=== PATIENT | male | born 1965 ===

== ENCOUNTER 2017-11-01 10:57 | Emergency (ER) | payer OTHER ==
[2017-11-01 11:56] VITALS: TEMP 97; O2SAT 98
[2017-11-01] MEDS ORDERED: Sodium Chloride 0.9% 1,000 ML IV STA (12:58)
[2017-11-01 13:25] LABS: BASO % 0.2 % (0.0-2.0); EOS # 0.1 K/uL (0.0-0.7); EOS % 1.6 % (0.0-4.0); HEMOGLOBIN 16.3 g/dL (12.0-18.0); LYMPH # 1.2 K/uL (1.0-4.3); LYMPH % 18.9 % (20.0-40.0); MEAN CORPUSCULAR HEMOGLOBIN 29.4 pg (27.0-31.0); MEAN CORPUSCULAR HGB CONC 33.4 g/dL (33.0-37.0); MEAN PLATELET VOLUME 9.6 fl (7.2-11.7); MONO # 0.7 K/uL (0.0-0.8); MONO % 11.3 % (0.0-10.0); NEUT # 4.4 K/uL (1.8-7.0); NRBC % 0.1 % (0.0-0.0); RBC 5.55 Mil/uL (4.40-5.90); RED CELL DISTRIBUTION WIDTH 13.8 % (11.5-14.5); WHITE BLOOD COUNT 6.5 K/uL (4.8-10.8)
--- NOTE | 2017-11-01 13:26 | ED PDOC ---
HPI: Abdomen Time Seen by Provider: 11/01/17 12:50 Chief Complaint (Nursing): Abdominal Pain Chief Complaint (Provider): Abdominal Pain History Per: Patient History/Exam Limitations: no limitations Onset/Duration Of Symptoms: Intermittent Episodes (x4) Additional Complaint(s): 52 year old male presents to the emergency department with a complaint of lower abdominal pain and cramping associated with watery diarrhea and nausea ongoing intermittently for 4 days. He denied any fever, chills, vomiting, bloody stools. recent travel, antibiotic use or sick contacts. Patient reported that he took OTC medications for diarrhea with minimal relief. PMD: none provided Past Medical History Reviewed: Historical Data, Nursing Documentation, Vital Signs Vital Signs: Last Vital Signs Temp 97 F L 11/01/17 11:53 Pulse 86 11/01/17 11:53 Resp 16 11/01/17 11:53 BP 158/103 H 11/01/17 11:53 Pulse Ox 98 11/01/17 16:38 - Medical History PMH: No Chronic Diseases - Surgical History Surgical History: No Surg Hx - Family History Family History: States: Unknown Family Hx - Social History Current smoker - smoking cessation education provided: No Ex-Smoker (has not smoked in the last 12 months): Yes Alcohol: Social Drugs: Denies - Home Medications Home Medications: Ambulatory Orders Medication Instructions Recorded Dicyclomine [Dicyclomine HCl] 10 mg PO TID PRN #15 cap 11/01/17 - Allergies Allergies/Adverse Reactions: Allergies Allergy/AdvReac Type Severity Reaction Status Date / Time No Known Allergies Allergy Verified 11/01/17 11:52 Review of Systems ROS Statement: Except As Marked, All Systems Reviewed And Found Negative Constitutional: Negative for: Fever, Chills Gastrointestinal: Positive for: Nausea, Abdominal Pain (lower cramping), Diarrhea (watery). Negative for: Vomiting, Hematochezia Physical Exam - Reviewed Nursing Documentation Reviewed: Yes Vital Signs Reviewed: Yes - Physical Exam Appears: Positive for: Well, Non-toxic, No Acute Distress Head Exam: Positive for: ATRAUMATIC, NORMAL INSPECTION, NORMOCEPHALIC Skin: Positive for: Normal Color Eye Exam: Positive for: Normal appearance ENT: Positive for: Normal ENT Inspection Neck: Positive for: Normal Cardiovascular/Chest: Positive for: Regular Rate, Rhythm Respiratory: Positive for: Normal Breath Sounds. Negative for: Wheezing, Respiratory Distress Gastrointestinal/Abdominal: Positive for: Soft, Tenderness (mild suprapubic diffusely) Extremity: Positive for: Normal ROM (upper/lower) Neurologic/Psych: Positive for: Alert, Oriented - Laboratory Results Result Diagrams: 11/01/17 13:19 11/01/17 13:19 - ECG O2 Sat by Pulse Oximetry: 98 (RA) Pulse Ox Interpretation: Normal Medical Decision Making Medical Decision Making: Initial Impression: Abdominal pain with diarrhea Differential Diagnosis: Infectious colitis; Enteritis; Viral vs. bacterial illness; Diverticulitis Initial Plan: * CT ABD/pelvis with IV contrast * CMP * Urine dipstick * CBC * Bentyl 10mg PO * NS 1,000ml IV per 1,000mls/hr Time: 1423 --CT ABD/pelvvis FINDINGS: LOWER THORAX: Unremarkable. LIVER: 8 mm right hepatic dome hypoattenuating structure. No ductal dilatation. GALLBLADDER AND BILE DUCTS: Unremarkable. PANCREAS: Unremarkable. No gross lesion or ductal dilatation. SPLEEN: Unremarkable. ADRENALS: Unremarkable. No mass. KIDNEYS AND URETERS: Unremarkable. No hydronephrosis. No solid mass. VASCULATURE: Unremarkable. No aortic aneurysm. BOWEL: Unremarkable. No obstruction. No gross mural thickening. APPENDIX: Normal appendix. PERITONEUM: Unremarkable. No free fluid. No free air. LYMPH NODES: Unremarkable. No enlarged lymph nodes. BLADDER: Unremarkable. REPRODUCTIVE: Unremarkable. BONES: No acute fracture. OTHER FINDINGS: None. IMPRESSION: No acute abdominopelvic pathology. Time: 1319 --Labs: no significant abnormalities. Time: 1628 --Upon provider reevaluation, patient is medically stable with significant improvement and requires no further treatment in the ED at this time. Patient will be discharged home with Rx for Dicyclomine HCL. Counseling was provided and all questions were answered regarding diagnosis and need for follow up with [facility] in 2-3 days. There is agreement to discharge plan. Return if symptoms persist or worsen. Clinical Impression: Vomiting; Diarrhea; Abdominal pain Scribe Attestation: Documented by Molly Ernandez, acting as a scribe for Jonny Henry MD. Provider Scribe Attestation: All medical record entries made by the Scribe were at my direction and personally dictated by me. I have reviewed the chart and agree that the record accurately reflects my personal performance of the history, physical exam, medical decision making, and the department course for this patient. I have also personally directed, reviewed, and agree with the discharge instructions and disposition. Disposition - Clinical Impression Clinical Impression: Vomiting and diarrhea, Abdominal pain - Patient ED Disposition Is Patient to be Admitted: No Doctor Will See Patient In The: Office Counseled Patient/Family Regarding: Studies Performed, Diagnosis, Need For Followup - Disposition Referrals: [facility] [Outside] Disposition: Routine/Home Disposition Time: 16:28 Condition: GOOD Additional Instructions: Drink plenty of fluids. Follow up with your PCP in 2-3 days. Prescriptions: Dicyclomine [Dicyclomine HCl] 10 mg PO TID PRN #15 cap PRN Reason: Diarrhea Instructions: Diarrhea and Traveler's Diarrhea, Adult (DC) Print Language: INDIAN
[2017-11-01 13:35] LABS: ALB/GLOB RATIO 1.2 (1.0-2.1); ALBUMIN 4.3 g/dL (3.5-5.0); ALT/SGPT 45 U/L (21-72); AST/SGOT 25 U/L (17-59); BLOOD UREA NITROGEN 19 mg/dl (9-20); CALCIUM 9.6 mg/dL (8.4-10.2); GFR AFRICAN-AMERICAN > 60; GFR NON-AFRICAN AMERICAN 58
[2017-11-01] MEDS ORDERED: Iohexol 300 100 ML IJ ONE (14:00)
--- NOTE | 2017-11-01 14:24 | CT ---
PROCEDURE: CT Abdomen and Pelvis with contrast HISTORY: abdominal pain diarrhea COMPARISON: None. TECHNIQUE: Contrast dose: 95 mL Omnipaque 300 Radiation dose: Total exam DLP = 525.3 MGy-cm. This CT exam was performed using one or more of the following dose reduction techniques: Automated exposure control, adjustment of the mA and/or kV according to patient size, and/or use of iterative reconstruction technique. FINDINGS: LOWER THORAX: Unremarkable. LIVER: 8 mm right hepatic dome hypoattenuating structure. No ductal dilatation. GALLBLADDER AND BILE DUCTS: Unremarkable. PANCREAS: Unremarkable. No gross lesion or ductal dilatation. SPLEEN: Unremarkable. ADRENALS: Unremarkable. No mass. KIDNEYS AND URETERS: Unremarkable. No hydronephrosis. No solid mass. VASCULATURE: Unremarkable. No aortic aneurysm. BOWEL: Unremarkable. No obstruction. No gross mural thickening. APPENDIX: Normal appendix. PERITONEUM: Unremarkable. No free fluid. No free air. LYMPH NODES: Unremarkable. No enlarged lymph nodes. BLADDER: Unremarkable. REPRODUCTIVE: Unremarkable. BONES: No acute fracture. OTHER FINDINGS: None. IMPRESSION: No acute abdominopelvic pathology.
[2017-11-01 17:27] VITALS: BP 142/92; PULSE 66; RESP 18
== END 2017-11-01 17:00 | disposition home or self-care (01) ==
LOC: H.ER 10:57
DX: R10.9 Unspecified abdominal pain (principal); R11.10 Vomiting, unspecified; R19.7 Diarrhea, unspecified
CPT/HCPCS: 74177; 80053; 85025; 96360; 99284; J7040; Q9967